=== PATIENT | male | born 1970 | race American Indian/Alaskan Native ===

== ENCOUNTER 2018-06-26 18:28 | Inpatient (IN) | payer MEDICAID ==
[2018-06-26] MEDS ORDERED: TYLENOL PO ONE (18:39)
[2018-06-26] MEDS ORDERED: TYLENOL ONE (18:43)
[2018-06-26] MEDS ORDERED: MORPHINE IV ONE (19:08)
[2018-06-26] MEDS ORDERED: NACL 0.9% 1000 ML 1,000 ML IV ONE (19:08)
[2018-06-26] MEDS ORDERED: ZOFRAN IV ONE (19:08)
[2018-06-26 19:14] LABS: Hematocrit 40.6 % (35.5-45.6); Hemoglobin 13.5 gm/dl (11.8-15.2); Mean Corpuscular HGB Conc 33 % (32-34); Mean Corpuscular Hemoglobin 33 pg (28-32); Mean Corpuscular Volume 100 fl (84-94); Platelet Count 120 K/mm3 (140-440); Red Blood Count 4.07 M/mm3 (3.65-5.03); Red Cell Distribution Width 14.4 % (13.2-15.2)
--- NOTE | 2018-06-26 19:29 | Emergency Department Report ---
ED Fall HPI - General Chief Complaint: Fall Stated Complaint: CHEST PAIN/HIT RIGHT SIDE OF ABD Time Seen by Provider: 06/26/18 18:58 Source: patient Mode of arrival: Ambulatory - History of Present Illness Initial Comments: This is a 48-year-old male nontoxic, well nourished in appearance, no acute signs of distress presents to the ED with c/o of right sided rib pain and abdomen pain status post fall that occurred 5 days ago. Patient stated that he had a ground level slip and fall that he hit his right rib against the bathroom sink. Patient stated that there is some bruising around the right upper quadrant as well as the rib cage. Patient does state he has some shortness of breath when taking deep breaths. Patient denies any head trauma or neck pain. Patient denies any back pain. Patient denies any other trauma. Denies any chest pain, hemoptysis, fever, chills, nausea, vomiting, headache, stiff neck, numbness, tingling. Patient denies pleuritic chest pain. Patient denies any recent travels or long car rides. Patient denies any recent surgeries or any sick contacts. Patient stated allergies to Motrin. MD Complaint: fall -: days(s) (5) Fall From: standing Fall Witnessed: no Place Fall Occurred: home Loss of Consciousness: none Prolonged Down Time?: no Symptoms Prior to Fall: none Location: abdomen, other (right rib) Severity: moderate Severity scale (0 -10): 8 Quality: aching Context: tripped/slipped Associated Symptoms: shortness of breath (during taking deep breathes), abdominal pain (RUQ). denies: headache, neck pain, numbness, weakness, chest paint, hematuria, unable to walk, lightheaded, vertigo, confusion - Related Data Allergies Allergy/AdvReac Type Severity Reaction Status Date / Time ibuprofen [From Motrin] Allergy Swelling Verified 06/26/18 18:56 ED Review of Systems ROS: Stated complaint: CHEST PAIN/HIT RIGHT SIDE OF ABD Other details as noted in HPI Constitutional: denies: chills, fever Eyes: denies: eye pain, eye discharge, vision change ENT: denies: ear pain, throat pain Respiratory: denies: cough, shortness of breath, wheezing Cardiovascular: denies: chest pain, palpitations Endocrine: no symptoms reported Gastrointestinal: abdominal pain. denies: nausea, vomiting, diarrhea Genitourinary: denies: urgency, dysuria Musculoskeletal: denies: back pain, joint swelling, arthralgia Skin: denies: rash, lesions Neurological: denies: headache, weakness, paresthesias Psychiatric: denies: anxiety, depression Hematological/Lymphatic: denies: easy bleeding, easy bruising ED Past Medical Hx - Past Medical History Hx Hypertension: Yes Hx CVA: Yes Additional medical history: CHILDHOOD SEIZURES - Surgical History Additional Surgical History: SPINAL SURGERY - Social History Smoking Status: Never Smoker Substance Use Type: Alcohol ED Physical Exam - General Limitations: Physical Limitation General appearance: alert, in no apparent distress - Head Head exam: Present: atraumatic, normocephalic - Eye Eye exam: Present: normal appearance - ENT ENT exam: Present: normal exam, mucous membranes moist - Neck Neck exam: Present: normal inspection, full ROM. Absent: tenderness, meningismus - Respiratory Respiratory exam: Present: normal lung sounds bilaterally, chest wall tenderness (rigjht lateral rib). Absent: respiratory distress, wheezes, rales, rhonchi, stridor, accessory muscle use, decreased breath sounds, prolonged expiratory - Cardiovascular Cardiovascular Exam: Present: regular rate, normal rhythm, normal heart sounds. Absent: irregular rhythm, systolic murmur, diastolic murmur, rubs, gallop - GI/Abdominal GI/Abdominal exam: Present: soft, tenderness (RUQ), normal bowel sounds, other ( ecchymosis with nodular swelling with no induration or flutance noted to RUQ). Absent: distended, guarding, rebound, rigid, diminished bowel sounds, hyperactive bowel sounds, hypoactive bowel sounds - Rectal Rectal exam: Present: deferred - Extremities Exam Extremities exam: Present: normal inspection, full ROM, normal capillary refill. Absent: tenderness - Back Exam Back exam: Present: normal inspection, full ROM. Absent: tenderness, CVA tenderness (R), CVA tenderness (L), muscle spasm, paraspinal tenderness, vertebral tenderness, rash noted - Expanded Back Exam Expanded Back exam: Absent: saddle anesthesia Back exam: Negative Straight Leg Raising: Left, Right - Neurological Exam Neurological exam: Present: alert, oriented X3, normal gait - Expanded Neurological Exam Expanded Patient oriented to: Present: person, place, time Cranial nerves: EOM's Intact: Normal, Facial Sensation: Normal Cerebellar function: Finger to Nose: Normal Sensory exam: Upper Extremity Light Touch: Normal, Upper Extremity Pin Prick: Normal, Upper Extremity Temperature: Normal, UE 2 Point Discrimination: Normal, Lower Extremity Light Touch: Normal, Lower Extremity Pin Prick: Normal, Lower Extremity Temperature: Normal, LE 2 Point Discrimination: Normal Motor strength exam: RUE: 5, LUE: 5, RLE: 5, LLE: 5 Best Eye Response (Jonathon): (4) open spontaneously Best Motor Response (Jonathon): (6) obeys commands Best Verbal Response (Jonathon): (5) oriented Jonathon Total: 15 - Psychiatric Psychiatric exam: Present: normal affect, normal mood - Skin Skin exam: Present: warm, dry, intact, normal color. Absent: rash ED Course Vital Signs 06/26/18 18:32 Temperature 99.4 F Pulse Rate 110 H Respiratory 18 Rate Blood Pressure 153/110 O2 Sat by Pulse 99 Oximetry - Reevaluation(s) Reevaluation #1: 06/26/18 20:05 Patient is speaking in full sentences with no signs of distress noted. - Consultations Consultation #1: 06/27/18 03:39 Patient has been consulted with Dr. Wong about patient history, physical exam , and labs/CT and agrees to the ED plan of care with surgery consult and admission. ED Medical Decision Making - Lab Data Result diagrams: 06/26/18 18:49 06/26/18 18:49 - EKG Data Interpretation: no acute changes, normal EKG, other (No ST abnormalities) 06/26/18 20:[address] Wong - Medical Decision Making This is a 48-year-old male that presents with right rib contusion. Patient is stable breast exam by me. CT has been obtained with no overt fracture and normal CTA. Abdomen CT with oral contrast and IV contrast suspicious for possible ischemic bowel injury and pneumatosis. Patient was discussed with Dr. Wong which she agrees to admission with surgery consult. Patient was put on nothing by mouth with administration of 125 mL of normal saline and Zosyn. Patient was consulted with Dr. Paiz (general Surgery) and agrees for admission. Patient is admitted by Dr. Sheridan (hospitalist). At time of admission , the patient does not seem toxic or ill in appearance. No acute signs of distress noted. Patient agrees to admission treatment plan of care. No further questions noted by the patient. Critical care attestation.: If time is entered above; I have spent that time in minutes in the direct care of this critically ill patient, excluding procedure time. ED Disposition Clinical Impression: Pneumatosis coli Fall Qualifiers: Encounter type: initial encounter Qualified Code(s): W19.XXXA - Unspecified fall, initial encounter Contusion of rib on right side Qualifiers: Encounter type: initial encounter Qualified Code(s): S20.211A - Contusion of right front wall of thorax, initial encounter Disposition: DC-09 OP ADMIT IP TO THIS HOSP Is pt being admited?: Yes Condition: Stable Referrals: PRIMARY CARE, [Primary Care Provider] - 3-5 Days
[2018-06-26 19:36] LABS: Albumin 4.6 g/dL (3.9-5); Bilirubin,Direct 0.5 mg/dL (0-0.2)
[2018-06-26 19:46] LABS: BUN/Creatinine Ratio 10; Blood Urea Nitrogen 6 mg/dL (9-20); Calcium 9.6 mg/dL (8.4-10.2); Hemolysis Index 5
[2018-06-26 20:26] LABS: Eosinophils % (Manual) 0 % (0.0-4.3); Total Cells Counted 100
[2018-06-26 20:27] LABS: Platelet Estimate Consistent w Auto; Target Cells Few
[2018-06-26] MEDS ORDERED: NACL 0.9% 100 ML ONE (20:49)
--- NOTE | 2018-06-26 21:33 | Cat Scan Report ---
FINAL REPORT PROCEDURE: CT ANGIO CHEST TECHNIQUE: Computerized tomographic angiography of the chest was performed after the IV injection of iodinated nonionic contrast including image processing. The image data was postprocessed using 2-dimensional multiplanar reformatted (MPR) and 3-dimensional (MIP and/or volume rendered) techniques. HISTORY: right rib pain COMPARISON: No prior studies are available for comparison. FINDINGS: Heart and pericardium: No pericardial effusion or thickening. Thoracic aorta: No aneurysm or dissection. Pulmonary vasculature: Normal. Lymph nodes: No enlarged thoracic lymph nodes. Lungs: Normal. Pleural space: No effusion, thickening, or pneumothorax. Musculoskeletal structures: No significant abnormality. Upper abdominal structures: No significant abnormality. IMPRESSION: No evidence of pulmonary emboli
--- NOTE | 2018-06-26 22:32 | Cat Scan Report ---
FINAL REPORT PROCEDURE: CT ABDOMEN PELVIS W CON TECHNIQUE: Computerized axial tomography of the abdomen and pelvis was performed after the IV injection of iodinated nonionic contrast. HISTORY: TRAUMA TO ABDOMEN and pain COMPARISON: No prior studies are available for comparison. FINDINGS: Visualized lower thorax: No significant abnormality. Liver: Normal size and attenuation. Spleen: Normal size and attenuation. Gallbladder and biliary system: Gallbladder is present. Pancreas: Normal. Adrenals: Normal. Kidneys: Normal. GI tract: Air outlines the stool in the right colon and may be intraluminal or possibly related to pneumatosis coli, which can be seen incidentally. There is no wall thickening or inflammatory change seen to suggest an acute inflammatory process. No bowel obstruction.. Lymph nodes and mesentery: Normal. Vasculature: Normal. Bladder: Normal. Reproductive organs: Normal. Peritoneum: No free fluid. Musculoskeletal structures: Lipoma is noted deep to the left gluteal musculature. Other: None. IMPRESSION: No acute posttraumatic abnormality is seen Air outlines the stool in the right colon, which could be intraluminal air versus pneumatosis coli, which can also be seen incidentally. No acute inflammation is seen. If there is concern for bowel pathology, follow-up with oral contrast could be obtained.
--- NOTE | 2018-06-27 03:17 | Cat Scan Report ---
FINAL REPORT PROCEDURE: CT ABDOMEN PELVIS WO CON TECHNIQUE: Computerized axial tomography of the abdomen and pelvis was performed without intravenous contrast. This study is performed without intravascular contrast material and its sensitivity for abdominal and pelvic pathology, including neoplasms, inflammation, abscess, free fluid, thrombosis, arterial dissection and infarction, is reduced compared with a contrast enhanced study. HISTORY: abd pain RE: scanned earlier COMPARISON: 06/26/2018 FINDINGS: Visualized lower thorax: No significant abnormality. Liver: Normal size and attenuation. Spleen: Normal size and attenuation. Gallbladder and biliary system: Normal. Pancreas: Normal. Adrenals: Normal. Kidneys: Normal. GI tract: Intramural air is again identified in the right colon suspicious for pneumatosis and possible ischemic bowel injury. There is no bowel wall thickening. There is no obstruction or perforation. The stomach and small bowel and appendix are normal.. Lymph nodes and mesentery: There is no mesenteric induration or adenopathy or mass.. Vasculature: Normal. Bladder: Normal. Reproductive organs: Normal. Peritoneum: No free fluid. Musculoskeletal structures: No significant abnormality. Other: None. IMPRESSION: Intramural air is again identified in the right colon suspicious for pneumatosis and possible ischemic bowel injury. Clinical correlation suggested. There is no bowel wall thickening. There is no obstruction or perforation. The stomach and small bowel and appendix are normal.. There is no mesenteric induration or adenopathy or mass.. .
[2018-06-27] MEDS ORDERED: NACL 0.9% 1000 ML 1,000 ML IV ONE (03:41)
[2018-06-27] MEDS ORDERED: ZOSYN/NS 4.5GM/100ML 4.5 GM/100 ML VIAL IV SCH ×2 (04:00→12:00)
[2018-06-27] MEDS ORDERED: MORPHINE IV ONE (04:09)
[2018-06-27] MEDS ORDERED: ZOFRAN IV ONE (04:09)
[2018-06-27] MEDS ORDERED: ZOFRAN ONE (04:13)
[2018-06-27] MEDS ORDERED: MORPHINE ONE (04:13)
[2018-06-27] MEDS ORDERED: SODIUM CHLORIDE FLUSH SYRINGE 10 ML IV PRN (04:50)
[2018-06-27] MEDS ORDERED: MORPHINE IV PRN (04:50)
[2018-06-27] MEDS ORDERED: TYLENOL PO PRN (04:50)
[2018-06-27] MEDS ORDERED: ZOFRAN IV PRN (04:50)
[2018-06-27] MEDS ORDERED: NACL 0.9% 1000 ML 1,000 ML IV SCH (05:00)
--- NOTE | 2018-06-27 05:12 | History and Physical Report ---
History of Present Illness History of present illness: 48 year old man with history of hypertension, CVA with right sided weakness comes to the emergency room for evaluation of his right abdomen. The patient fell and hit the right side of his chest and upper abdomen on the sink . He stated that 3 knots came up but only one present now and it is getting smaller. Pain is sharp, constant, intensity 7/10, no radiation, better with pain medications. Denies abdominal pain radiating Review of systems Constitutional: no weight loss, chills, fever Ears, eyes, nose, mouth and throat: no nasal congestion, no nasal discharge, no sinus pressure, no vision change, no red eye. Neck: No neck pain or rigidity. Cardiovascular: no chest pain, palpitations Respiratory: no cough, shortness of breath Gastrointestinal: no abdominal pain hematochezia Genitourinary : no frequency , no hematuria Musculoskeletal: no joint swelling or muscle ache Integumentary: no rash, no pruritis Neurological: no parathesias, no numbness, no focal weakness Endocrine: no cold or heat intolerance, no polyuria or polydipsia Hematologic/Lymphatic: no easy bruising, no easy bleeding, no gland swelling Allergic/Immunologic: no urticaria, no angioedema. PAST MEDICAL HISTORY: hypertension, CVA with right sided weakness PAST SURGICAL HISTORY: Spine surgery SOCIAL HISTORY: Drinl couple beers a day, no drugs, tobacco FAMILY HISTORY: Hypertension Medications and Allergies Allergies Allergy/AdvReac Type Severity Reaction Status Date / Time ibuprofen [From Motrin] Allergy Swelling Verified 06/26/18 18:56 Active Meds: Active Medications Acetaminophen (Tylenol) 650 mg PO Q4H PRN PRN Reason: Pain MILD(1-3)/Fever >100.5/GREWAL Sodium Chloride (Nacl 0.9% 1000 Ml) 1,000 mls @ 125 mls/hr IV ONCE ONE Stop: 06/27/18 11:40 Last Admin: 06/27/18 04:10 Dose: 125 mls/hr Sodium Chloride (Nacl 0.9% 1000 Ml) 1,000 mls @ 125 mls/hr IV DIRECT JORGE Morphine Sulfate (Morphine) 2 mg IV Q4H PRN PRN Reason: Pain, Moderate (4-6) Ondansetron HCl (Zofran) 4 mg IV Q4H PRN PRN Reason: Nausea And Vomiting Sodium Chloride (Sodium Chloride Flush Syringe 10 Ml) 10 ml IV BID JORGE Sodium Chloride (Sodium Chloride Flush Syringe 10 Ml) 10 ml IV PRN PRN PRN Reason: LINE FLUSH Exam - Physical Exam Narrative exam: Gen. appearance: Patient lying in bed, no apparent distress HEENT: Normocephalic, atraumatic, pupils equally round and reactive to light, extraocular movement intact, and no sclericterus,. No JVD or thyromegaly or nodule,neck supple, no carotid bruit ,mucous membranes moist, no exudate or erythema Heart: S1, S2, regular rate and rhythm Lungs: Clear bilaterally, breathing comfortable Abdomen: Reveals on the right upper quadrant, tender to touch, cutaneous nodule in the right upper quadrant Positive bowel sounds, nondistended, no organomegaly Extremity:no edema cyanosis, clubbing Skin: no rash, dry, warm Neuro: Oriented 3, cranial nerves II-12 intact, speech is fluent, motor and sensory intact - Constitutional Vitals: Temp Pulse Resp BP Pulse Ox 99.4 F 77 16 143/97 99 06/26/18 18:32 06/27/18 03:41 06/27/18 03:41 06/27/18 03:41 06/27/18 03:41 Results - Labs CBC & Chem 7: 06/26/18 18:49 06/26/18 18:49 Labs: Abnormal lab results 06/26/18 06/26/18 06/26/18 Range/Units 18:49 18:49 18:49 MCV 100 H (84-94) fl MCH 33 H (28-32) pg Plt Count 120 L (140-440) K/mm3 Monocytes % (Manual) 13.0 H (0.0-7.3) % Basophils % (Manual) 2.0 H (0.0-1.8) % Sodium 130 L (137-145) mmol/L Chloride 89.9 L (98-107) mmol/L BUN 6 L (9-20) mg/dL Creatinine 0.6 L (0.8-1.5) mg/dL Glucose 107 H (75-100) mg/dL Total Bilirubin 2.10 H (0.1-1.2) mg/dL Direct Bilirubin 0.5 H (0-0.2) mg/dL AST 102 H (5-40) units/L ALT 82 H (7-56) units/L - Imaging and Cardiology CT scan - abdomen: report reviewed CT scan - chest: report reviewed CT scan - pelvis: report reviewed Assessment and Plan Assessment Pneumobilia ischemic bowel, less likely Thrombocytopenia Hypertension H/o CVA with right sided weakness Plan Admit to medicine Start IV fluid, check lactate, consult surgery Monitor hemoglobin, continue empiric antibiotics Consult critical care, IV morphine, DVT prophylaxis
[2018-06-27 08:38] LABS: Hematocrit 36.4 % (35.5-45.6); Hemoglobin 12.3 gm/dl (11.8-15.2)
[2018-06-27 09:23] LABS: Hematocrit 35.8 % (35.5-45.6); Hemoglobin 11.9 gm/dl (11.8-15.2)
[2018-06-27] MEDS ORDERED: SODIUM CHLORIDE FLUSH SYRINGE 10 ML IV SCH (10:00)
--- NOTE | 2018-06-27 10:25 | Consultation ---
History of Present Illness Consult date: 06/27/18 Chief complaint: fall - History of present illness History of present illness: 48 yo M with hx of HTN presents to ER s/p fall in his bathroom at 7 am yesterday. He states he had a stroke in the past and has had right sided weakness since. He went to use the restroom and his right foot caught on the rug and he fell. He hit only the right side of his upper abdomen on the corner of the sink. He did not strike his head or lose consciousness. He states he came to the hospital because he felt a knot in the area that came into contact with the sink. He had been eating after the incident and having normal BMs. He denies melena or hematochezia. No nausea. One episode of emesis in the ER after receiving pain meds. He is having sharp, mild pain in the RUQ near the area of injury which is better and controlled with pain medications. No CP, SOB, f/c. His last cscope was less than 5 years ago and was normal. Past History Past Medical History: hypertension, stroke Past Surgical History: Other (back surgery) Social history: alcohol abuse (social). denies: smoking, prescription drug abuse Family history: no significant family history Medications and Allergies Allergies Allergy/AdvReac Type Severity Reaction Status Date / Time ibuprofen [From Motrin] Allergy Swelling Verified 06/26/18 18:56 Active Meds: Active Medications Acetaminophen (Tylenol) 650 mg PO Q4H PRN PRN Reason: Pain MILD(1-3)/Fever >100.5/GREWAL Sodium Chloride (Nacl 0.9% 1000 Ml) 1,000 mls @ 125 mls/hr IV ONCE ONE Stop: 06/27/18 11:40 Last Admin: 06/27/18 04:10 Dose: 125 mls/hr Sodium Chloride (Nacl 0.9% 1000 Ml) 1,000 mls @ 125 mls/hr IV DIRECT JORGE Last Admin: 06/27/18 09:00 Dose: 125 mls/hr Piperacillin Sod/Tazobactam Sod (Zosyn/Ns 4.5gm/100ml) 4.5 gm in 100 mls @ 200 mls/hr IV Q8H JORGE; Protocol Morphine Sulfate (Morphine) 2 mg IV Q4H PRN PRN Reason: Pain, Moderate (4-6) Last Admin: 10/02/18 08:35 Dose: 2 mg Ondansetron HCl (Zofran) 4 mg IV Q4H PRN PRN Reason: Nausea And Vomiting Last Admin: 06/27/18 08:35 Dose: 4 mg Sodium Chloride (Sodium Chloride Flush Syringe 10 Ml) 10 ml IV BID JORGE Sodium Chloride (Sodium Chloride Flush Syringe 10 Ml) 10 ml IV PRN PRN PRN Reason: LINE FLUSH Review of Systems All systems: negative (10 pt ROS performed and negative except for that listed in HPI) Exam Vital Signs Temp Pulse Resp BP Pulse Ox 99.4 F 110 H 18 153/110 99 06/26/18 18:32 06/26/18 18:32 06/26/18 18:32 06/26/18 18:32 06/26/18 18:32 Narrative exam: Gen: AAOx3. NAD ENT: no scleral icterus or conjunctival pallor CV: S1, S2+, no m/r/g Resp: CTAB, no w/r/r Abd: soft, NT, ND. Ecchymosis and small 2 cm hematoma overlying RUQ of abdomen. This area is nontender. No r/r/g Ext: no c/c/e Results - Labs 06/27/18 09:12 06/26/18 18:49 Abnormal lab results 06/26/18 06/26/18 06/26/18 Range/Units 18:49 18:49 18:49 MCV 100 H (84-94) fl MCH 33 H (28-32) pg Plt Count 120 L (140-440) K/mm3 Monocytes % (Manual) 13.0 H (0.0-7.3) % Basophils % (Manual) 2.0 H (0.0-1.8) % Sodium 130 L (137-145) mmol/L Chloride 89.9 L (98-107) mmol/L BUN 6 L (9-20) mg/dL Creatinine 0.6 L (0.8-1.5) mg/dL Glucose 107 H (75-100) mg/dL Total Bilirubin 2.10 H (0.1-1.2) mg/dL Direct Bilirubin 0.5 H (0-0.2) mg/dL AST 102 H (5-40) units/L ALT 82 H (7-56) units/L Diabetes panel 10/01/18 10/01/18 Range/Units 18:49 18:49 Sodium 130 L (137-145) mmol/L Potassium 4.1 (3.6-5.0) mmol/L Chloride 89.9 L (98-107) mmol/L Carbon Dioxide 22 (22-30) mmol/L BUN 6 L (9-20) mg/dL Creatinine 0.6 L (0.8-1.5) mg/dL Glucose 107 H (75-100) mg/dL Calcium 9.6 (8.4-10.2) mg/dL AST 102 H (5-40) units/L ALT 82 H (7-56) units/L Alkaline Phosphatase 57 (35-129) units/L Total Protein 7.7 (6.3-8.2) g/dL Albumin 4.6 (3.9-5) g/dL Calcium panel 06/26/18 06/26/18 Range/Units 18:49 18:49 Calcium 9.6 (8.4-10.2) mg/dL Albumin 4.6 (3.9-5) g/dL Pituitary panel 06/26/18 Range/Units 18:49 Sodium 130 L (137-145) mmol/L Potassium 4.1 (3.6-5.0) mmol/L Chloride 89.9 L (98-107) mmol/L Carbon Dioxide 22 (22-30) mmol/L BUN 6 L (9-20) mg/dL Creatinine 0.6 L (0.8-1.5) mg/dL Glucose 107 H (75-100) mg/dL Calcium 9.6 (8.4-10.2) mg/dL Adrenal panel 06/26/18 06/26/18 Range/Units 18:49 18:49 Sodium 130 L (137-145) mmol/L Potassium 4.1 (3.6-5.0) mmol/L Chloride 89.9 L (98-107) mmol/L Carbon Dioxide 22 (22-30) mmol/L BUN 6 L (9-20) mg/dL Creatinine 0.6 L (0.8-1.5) mg/dL Glucose 107 H (75-100) mg/dL Calcium 9.6 (8.4-10.2) mg/dL Total Bilirubin 2.10 H (0.1-1.2) mg/dL AST 102 H (5-40) units/L ALT 82 H (7-56) units/L Alkaline Phosphatase 57 (35-129) units/L Total Protein 7.7 (6.3-8.2) g/dL Albumin 4.6 (3.9-5) g/dL - Imaging CT scan - abdomen: report reviewed, image reviewed CT scan - pelvis: report reviewed, image reviewed Assessment and Plan 48-year-old male with questionable pneumatosis of the right colon status post traumatic fall Patient has a benign abdomen, is having normal bowel movements, and feels well. He does not appear to be in any distress and findings of possible pneumatosis of portion of right colon on CT are likely due to trauma and are likely transient. 1. continue IVF and supportive care 2. ice pack to right upper abdomen for ecchymosis 3. start clear liquid diet 4. prn PO pain control 5. activity as tolerated 6. At this time the patient is stable with a benign abdomen. There is no acute surgical intervention indicated. If patient continues to do well and abdomen remains benign, would consider discharge today or tomorrow. Thank you for this consultation, please call with questions or concerns.
[2018-06-27 10:27] VITALS: BP 143/95
--- NOTE | 2018-06-27 11:01 | Consultation ---
History of Present Illness Consult date: 06/27/18 Requesting physician: LEXIE ASHRAF Past History Past Medical History: hypertension, stroke Past Surgical History: Other (back surgery) Social history: alcohol abuse (social). denies: smoking, prescription drug abuse Family history: no significant family history Medications and Allergies Allergies Allergy/AdvReac Type Severity Reaction Status Date / Time ibuprofen [From Motrin] Allergy Swelling Verified 06/26/18 18:56 Active Meds: Active Medications Acetaminophen (Tylenol) 650 mg PO Q4H PRN PRN Reason: Pain MILD(1-3)/Fever >100.5/GREWAL Sodium Chloride (Nacl 0.9% 1000 Ml) 1,000 mls @ 125 mls/hr IV ONCE ONE Stop: 06/27/18 11:40 Last Admin: 06/27/18 04:10 Dose: 125 mls/hr Sodium Chloride (Nacl 0.9% 1000 Ml) 1,000 mls @ 125 mls/hr IV DIRECT JORGE Last Admin: 06/27/18 09:00 Dose: 125 mls/hr Piperacillin Sod/Tazobactam Sod (Zosyn/Ns 4.5gm/100ml) 4.5 gm in 100 mls @ 200 mls/hr IV Q8H JORGE; Protocol Morphine Sulfate (Morphine) 2 mg IV Q4H PRN PRN Reason: Pain, Moderate (4-6) Last Admin: 06/27/18 08:35 Dose: 2 mg Ondansetron HCl (Zofran) 4 mg IV Q4H PRN PRN Reason: Nausea And Vomiting Last Admin: 06/27/18 08:35 Dose: 4 mg Sodium Chloride (Sodium Chloride Flush Syringe 10 Ml) 10 ml IV BID JORGE Sodium Chloride (Sodium Chloride Flush Syringe 10 Ml) 10 ml IV PRN PRN PRN Reason: LINE FLUSH Physical Examination Vital signs: Vital Signs Temp Pulse Resp BP Pulse Ox 99.4 F 110 H 18 153/110 99 06/26/18 18:32 06/26/18 18:32 06/26/18 18:32 06/26/18 18:32 06/26/18 18:32 Results - Laboratory Findings CBC and BMP: 06/27/18 09:12 06/26/18 18:49 Abnormal lab findings: Abnormal Labs 06/26/18 06/26/18 06/26/18 18:49 18:49 18:49 MCV 100 H MCH 33 H Plt Count 120 L Monocytes % (Manual) 13.0 H Basophils % (Manual) 2.0 H Sodium 130 L Chloride 89.9 L BUN 6 L Creatinine 0.6 L Glucose 107 H Total Bilirubin 2.10 H Direct Bilirubin 0.5 H AST 102 H ALT 82 H
--- NOTE | 2018-06-27 13:33 | Event Note ---
Date: 06/27/18 I was alerted by the charge nurse that the patient signed out AMA - I did not see this patient
== END 2018-06-27 10:45 | disposition left against medical advice (07) | DRG 394 ==
LOC: ED 18:28 → CC1 06-27 04:50
PROVIDERS: ADMIT Internal Medicine; ATTEND Internal Medicine
DX: K63.89 Other specified diseases of intestine (principal); I69.351 Hemiplegia and hemiparesis following cerebral infarction affecting right dominant side; S20.211A Contusion of right front wall of thorax, initial encounter; Z53.21 Procedure and treatment not carried out due to patient leaving prior to being seen by health care provider; I10 Essential (primary) hypertension; F10.10 Alcohol abuse, uncomplicated; Y90.0 Blood alcohol level of less than 20 mg/100 ml; D69.6 Thrombocytopenia, unspecified; W01.0XXA Fall on same level from slipping, tripping and stumbling without subsequent striking against object, initial encounter; Z82.49 Family history of ischemic heart disease and other diseases of the circulatory system; Z88.6 Allergy status to analgesic agent; Y93.E1 Activity, personal bathing and showering; Y92.091 Bathroom in other non-institutional residence as the place of occurrence of the external cause; Y99.8 Other external cause status
CPT/HCPCS: 36415; 71275; 74176; 74177; 80048; 80074; 82140; 85007; 85014; 85018; 85025; 93005; 93010; J2270; J2405; J2543; J7030

== ENCOUNTER 2018-07-04 12:15 | Emergency (ER) | payer MEDICAID ==
[2018-07-04] MEDS ORDERED: NACL 0.9% 1000 ML 1,000 ML IV ONE (14:01)
[2018-07-04 14:16] LABS: Basophils # (Auto) 0.1 K/mm3 (0.0-0.1); Basophils % (Auto) 1.1 % (0.0-1.8); Eosinophils # (Auto) 0.1 K/mm3 (0.0-0.4); Eosinophils % (Auto) 2.4 % (0.0-4.3); Hematocrit 41.1 % (35.5-45.6); Hemoglobin 13.7 gm/dl (11.8-15.2); Lymphocytes # (Auto) 1.9 K/mm3 (1.2-5.4); Lymphocytes % (Auto) 37.1 % (13.4-35.0); Mean Corpuscular HGB Conc 33 % (32-34); Mean Corpuscular Hemoglobin 34 pg (28-32); Mean Corpuscular Volume 101 fl (84-94); Monocytes # (Auto) 0.5 K/mm3 (0.0-0.8); Monocytes % (Auto) 9.1 % (0.0-7.3); Platelet Count 152 K/mm3 (140-440); Red Blood Count 4.08 M/mm3 (3.65-5.03); Red Cell Distribution Width 14.8 % (13.2-15.2)
[2018-07-04 14:42] LABS: Alanine Aminotransferase 43 units/L (7-56); Albumin 4.6 g/dL (3.9-5); BUN/Creatinine Ratio 10; Blood Urea Nitrogen 5 mg/dL (9-20); Calcium 9.5 mg/dL (8.4-10.2); Hemolysis Index 14
--- NOTE | 2018-07-04 18:34 | Emergency Department Report ---
ED General Adult HPI - General Chief complaint: Abdominal Pain Stated complaint: ABD PAIN Time Seen by Provider: 07/04/18 17:31 Source: patient Mode of arrival: Ambulatory Limitations: No Limitations - History of Present Illness Initial comments: Patient presents to the emergency department with a chief complaint of abdominal bruising. Patient states that on beginning of this month old hitting his right upper abdomen on the sink and had a CAT scan done that show possible air in his colon. Patient was being seen by surgeon in-house and was admitted to internal medicine when he decided to leave AGAINST MEDICAL ADVICE. Patient states he does not have any pain currently but just wants to make sure things are getting worse Severity scale (0 -10): 1 Improves with: none Worsens with: none Associated Symptoms: denies other symptoms Treatments Prior to Arrival: none - Related Data Allergies Allergy/AdvReac Type Severity Reaction Status Date / Time ibuprofen [From Motrin] Allergy Swelling Verified 06/26/18 18:56 ED Review of Systems ROS: Stated complaint: ABD PAIN Other details as noted in HPI Comment: All other systems reviewed and negative Constitutional: denies: chills, fever Eyes: denies: eye pain, eye discharge, vision change ENT: denies: ear pain, throat pain Respiratory: denies: cough, shortness of breath, wheezing Cardiovascular: denies: chest pain, palpitations Endocrine: no symptoms reported Gastrointestinal: denies: abdominal pain, nausea, diarrhea Genitourinary: denies: urgency, dysuria Musculoskeletal: denies: back pain, joint swelling, arthralgia Skin: denies: rash, lesions Neurological: denies: headache, weakness, paresthesias Psychiatric: denies: anxiety, depression Hematological/Lymphatic: denies: easy bleeding, easy bruising ED Past Medical Hx - Past Medical History Hx Hypertension: Yes Hx CVA: Yes Additional medical history: CHILDHOOD SEIZURES - Surgical History Past Surgical History?: Yes Additional Surgical History: SPINAL SURGERY - Social History Smoking Status: Never Smoker Substance Use Type: Alcohol ED Physical Exam - General Limitations: No Limitations General appearance: alert, in no apparent distress - Head Head exam: Present: atraumatic, normocephalic - Eye Eye exam: Present: normal appearance - ENT ENT exam: Present: mucous membranes moist - Neck Neck exam: Present: normal inspection - Respiratory Respiratory exam: Present: normal lung sounds bilaterally. Absent: respiratory distress, wheezes, rales, rhonchi - Cardiovascular Cardiovascular Exam: Present: regular rate, normal rhythm. Absent: systolic murmur, diastolic murmur, rubs, gallop - GI/Abdominal GI/Abdominal exam: Present: soft, normal bowel sounds, other (bruising to the right upper aspect of the abdomen). Absent: distended, tenderness - Rectal Rectal exam: Present: deferred - Extremities Exam Extremities exam: Present: normal inspection - Back Exam Back exam: Present: normal inspection - Neurological Exam Neurological exam: Present: alert, oriented X3 - Psychiatric Psychiatric exam: Present: normal affect, normal mood - Skin Skin exam: Present: warm, dry, intact, normal color. Absent: rash ED Course Vital Signs 07/04/18 13:56 Temperature 98.8 F Pulse Rate 95 H Respiratory 16 Rate Blood Pressure 163/107 O2 Sat by Pulse 98 Oximetry ED Medical Decision Making - Lab Data Result diagrams: 07/04/18 14:05 07/04/18 14:05 - Medical Decision Making Reviewed the patient's prior CTs that were done on June 26 which showed a small amount of pneumatosis of the colon Physical patient'sof any pain, blood in stool, emesis, or difficulty breathing was discussed with the patient that we tried to do a repeat CAT scan or to follow up as outpatient. The patient politely declined a CAT scan of the abdomen and states will follow-up with the surgeon. Critical care attestation.: If time is entered above; I have spent that time in minutes in the direct care of this critically ill patient, excluding procedure time. ED Disposition Clinical Impression: Abdominal injury Disposition: DC-01 TO HOME OR SELFCARE Is pt being admited?: No Does the pt Need Aspirin: No Condition: Stable Instructions: Abdominal Pain (ED) Additional Instructions: return if worse Referrals: PRIMARY CARE, [Primary Care Provider] - 3-5 Days ELIANA LOREDO DO [Staff Physician] - 3-5 Days Time of Disposition: 18:32
[2018-07-04 18:42] VITALS: BP 153/91
== END 2018-07-04 18:50 | disposition home or self-care (01) ==
LOC: ED 12:15
DX: S30.1XXA Contusion of abdominal wall, initial encounter (principal); I10 Essential (primary) hypertension; Z88.8 Allergy status to other drugs, medicaments and biological substances; X58.XXXA Exposure to other specified factors, initial encounter; Y93.89 Activity, other specified; Y92.89 Other specified places as the place of occurrence of the external cause; Y99.8 Other external cause status
CPT/HCPCS: 36415; 80053; 85025; 99283